=== PATIENT | male | born 1940 | race Caucasian/White ===

== ENCOUNTER 2018-03-13 09:21 | Emergency (ER) | payer OTHER, BC ==
[~2018-03-13] VITALS: Ht 172.7 cm; Wt 85.0 kg
[2018-03-13 09:26] VITALS: BP 144/76; PULSE 83; RESP 34; O2SAT 98
[2018-03-13] MEDS ORDERED: CLAR10CA3 PO (09:39)
[2018-03-13] MEDS ORDERED: ALBUAER3 INH (09:39)
[2018-03-13] MEDS ORDERED: SPIRCAP INH (09:39)
[2018-03-13] MEDS ORDERED: LIPI20TA PO (09:39)
[2018-03-13] MEDS ORDERED: XARE10TA PO (09:39)
[2018-03-13 09:40] VITALS: TEMP 98
[2018-03-13] MEDS: RESP: ALBUTEROL 2.5 MG/3 ML NEB (SCH) INH (09:57)
--- NOTE | 2018-03-13 10:22 | PD ---
HPI Chief Complaint: Respiratory Symptoms Time Seen by Provider: 09:44 Travel History International Travel<30 days: No Contact w/Intl Traveler<30days: No Traveled to known affect area: No History of Present Illness HPI 77-year-old male with a history of COPD, presents here with complaints of shortness of breath. The patient reports that he has been aggressively short of breath over the last 2 days. He states he went to the [facility] to be evaluated and they sent him here. He denies any fevers, chills. Patient denies any productive cough. He reports over last 2 days he has had to use his ProAir air and Spiriva more frequent than his baseline. The patient has no previous history of intubation. He does not require oxygen at home. When paramedics arrived at the [facility], they found him to be tachypneic. They started an IV and gave him 125 mg of Solu-Medrol and a DuoNeb. He states he is breathing much better however he still appears to be winded. There is no reported chest pain, chest pressure. There are no other complaints at time of examination. [facility] Past Medical History High Cholesterol: Yes COPD: Yes Deep Vein Thrombosis: Yes Respiratory: Yes Past Surgical History Other Surgery: Yes (BLOOD CLOTS ON BOTH LEGS ) Social History Alcohol Use: No Tobacco Use: Yes (1-2 CIGGARETS A DAY ) Substance Use: No Allergies-Medications (Allergen,Severity, Reaction): Coded Allergies: No Known Allergies (Unverified , 03/13/18) Reported Meds & Prescriptions Reported Meds & Active Scripts Active Reported Proair Hfa 8.5 GM Inh (Albuterol Sulfate) 90 Mcg/Act Aer 2 Puff INH Q4-6H PRN 108 mcg/actuation Spiriva Handihaler (Tiotropium Inh) 18 Mcg Cap 18 Mcg INH DAILY 1 capsule = 18 mcg Claritin (Loratadine) 10 Mg Cap 10 Mg PO DAILY Xarelto (Rivaroxaban) 10 Mg Tab 10 Mg PO DAILY Lipitor (Atorvastatin Calcium) 20 Mg Tab 20 Mg PO HS Review of Systems Except as stated in HPI: all other systems reviewed are Neg General / Constitutional: No: Fever, Chills HENT: No: Headaches, Lightheadedness Cardiovascular: No: Chest Pain or Discomfort, Palpitations Respiratory: Positive: Shortness of Breath, No: Cough Gastrointestinal: No: Nausea, Vomiting, Abdominal Pain Genitourinary: No: Dysuria, Decreased Urinary Output Musculoskeletal: No: Weakness, Pain Neurologic: No: Weakness, Dizziness, Headache Physical Exam Narrative GENERAL: Well-developed well-nourished male in mild to moderate respiratory discomfort. SKIN: Focused skin assessment warm/dry. HEAD: Atraumatic. Normocephalic. EYES: Pupils equal and round. No scleral icterus. No injection or drainage. ENT: No nasal bleeding or discharge. Mucous membranes pink and moist. NECK: Trachea midline. Supple. CARDIOVASCULAR: Regular rate and rhythm. No murmur appreciated. RESPIRATORY: Decreased breath sounds at the bilateral bases. No rales or rhonchi appreciated. GASTROINTESTINAL: Abdomen soft, non-tender, nondistended. Hepatic and splenic margins not palpable. MUSCULOSKELETAL: No obvious deformities. No clubbing. No cyanosis. No edema. NEUROLOGICAL: Awake and alert. No obvious cranial nerve deficits. Motor grossly within normal limits. Normal speech. Data Data Last Documented VS Vital Signs Date Time Temp Pulse Resp B/P (MAP) Pulse Ox O2 Delivery O2 Flow Rate FiO2 03/13/18 11:53 90 18 160/69 (99) 92 Room Air 03/13/18 09:41 4.00 03/13/18 09:40 98.0 Orders Orders Albuterol Neb (Albuterol Neb) (03/13/18 09:45) [facility] Medical Decision Making Medical Screen Exam Complete: Yes Emergency Medical Condition: Yes Differential Diagnosis COPD versus pneumonia versus pulmonary embolus Narrative Course 77-year-old male presents with shortness of breath. Patient has a history of COPD. He has had worsening shortness of breath over the last couple days. The patient is currently using pro-air and Spiriva. When [facility] arrived they found him mildly to moderately tachypneic. They administered Solu-Medrol and started that DuoNeb. When he arrived here he was feeling much improved. He has been given 2 further albuterol nebulizers. On reevaluation he states he feels much improved. He was ambulated around the emergency department twice and his oxygen saturation remained in the 90s. He wishes to go home. He will be discharged with a Medrol Dosepak. Patient states he is getting his medications refilled at the [facility] and will pick them up on his way out today. He is instructed return to be DOS any worsening symptoms or any other reason that concerns him. Diagnosis Primary Impression: COPD exacerbation Additional Instructions: Return if feeling worse. Med/Other Pt SpecificInfo: Prescription(s) given Scripts Methylprednisolone Dosepak (Medrol Dosepak) 4 Mg Dspk 4 MG PO DIRECTED, #1 DSPK 0 Refills Per Pharmacist direction Prov: Dean Miller MD 03/13/18 Disposition: 01 DISCHARGE HOME Condition: Stable Dean Miller MD March 13, 2018 10:22
[2018-03-13 11:53] VITALS: BP 160/69; PULSE 90; RESP 18; O2SAT 92
[2018-03-13] MEDS ORDERED: MEDR4PAK PO (12:07)
== END 2018-03-13 12:26 | disposition home or self-care (01) ==
LOC: NEPE 09:21
DX: J44.1 Chronic obstructive pulmonary disease with (acute) exacerbation (principal); R06.82 Tachypnea, not elsewhere classified; E78.00 Pure hypercholesterolemia, unspecified; Z86.718 Personal history of other venous thrombosis and embolism; Z72.0 Tobacco use; Z79.01 Long term (current) use of anticoagulants; Z79.899 Other long term (current) drug therapy
CPT/HCPCS: 94640; 94664; 99283; J7613